=== PATIENT | female | born 2005 | race Caucasian/White ===

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

== ENCOUNTER → 2023-01-12 | Outpatient (CLI) | payer BC | LOC: LAB 18:32 | DX: L72.3 Sebaceous cyst (principal) ==

== ENCOUNTER 2024-04-12 18:21 | Emergency (ER) | payer OTHER, BC ==
[~2024-04-12] VITALS: Ht 167.6 cm; Wt 84.5 kg
[2024-04-12 19:19] VITALS: BP 123/75
== END 2024-04-12 19:19 | disposition home or self-care (01) ==
LOC: ED 18:21
DX: S61.312A Laceration without foreign body of right middle finger with damage to nail, initial encounter (principal); F17.200 Nicotine dependence, unspecified, uncomplicated; W26.8XXA Contact with other sharp object(s), not elsewhere classified, initial encounter; Y99.0 Civilian activity done for income or pay